=== PATIENT | female | born 1945 | race Caucasian/White ===

== ENCOUNTER 2017-05-21 15:06 | Inpatient (IN) | payer OTHER ==
--- NOTE | 2017-05-21 15:50 | EDPHY ---
H & P Time Seen by Provider: 05/21/17 15:49 HPI/ROS: Chief complaint. Abdominal pain HPI. Patient is 72-year-old female with history of Crohn's and colitis. She has now had 8 weeks of diarrhea with up to 12 mucousy bloody stools per day. She thinks it was bad food exposure when it began in mid March. She has diffuse abdominal discomfort. She has a hard time eating and keeping food and fluids down. Mainly she has decreased appetite. Some nausea but really no vomiting. Concern for dehydration and failure of outpatient treatment. She has been using as a call three times daily and prednisone. She has had negative stool studies as outpatient workup. Gastroenterology would like to admit here and do colonoscopy in the hospital tomorrow. Patient is recently finished radiation for breast cancer with metastatic disease to the bone. She complains of pain around her bottom and has been using Vaseline on the lesion. ROS Constitutional. no fever/chills, no weakness Eyes. no problems with vision ENT. no sore throat, no nasal drainage Cardiovascular. no chest pain Respiratory. no shortness of breath, no cough Abdominal. Abdominal pain, nausea, diarrhea . no problems urinating MS. no calf pain/swelling, no neck/back pain, no joint pain Skin. no rash Lymph. no swollen glands Neuro. no headache, no dizziness, no difficulty walking or with speech Past Medical/Surgical History: Past medical history Crohn's, colitis, hypothyroid, breast cancer that is metastatic to the spine, UTI Social History: , nonsmoker, no alcohol Smoking Status: Never smoked Physical Exam: General Appearance: Alert pleasant well-developed female mild distress vital signs are stable Eyes: Pupils equal and round no pallor or injection. ENT, Mouth: Mucous membranes are moist. Respiratory: There are no retractions, lungs are clear to auscultation. Cardiovascular: Regular rate and rhythm. Gastrointestinal: Abdomen is soft diffusely tender. No masses normal bowel sounds. I do not see significant lesions around the anus or bottom area. Neurological: Awake and alert, sensory and motor exams grossly normal. Skin: Warm and dry, no rashes. Musculoskeletal: Neck is supple nontender. Extremities symmetrical, full range of motion. Psychiatric: Patient is oriented X 3, there is no agitation. Constitutional: Initial Vital Signs Temperature (C) 36.7 C 05/21/17 15:23 Heart Rate 87 05/21/17 15:23 Respiratory Rate 16 05/21/17 15:23 Blood Pressure 149/98 H 05/21/17 15:23 O2 Sat (%) 97 05/21/17 15:23 O2 Delivery Mode Room Air Allergies/Adverse Reactions: cephalexin [Cephalexin] Allergy (Intermediate, Verified 05/21/17 15:21) Hives Sulfa (Sulfonamide Antibiotics) Allergy (Intermediate, Verified 05/21/17 15:21) Hives acetaminophen [From Vicodin] Allergy (Verified 05/21/17 15:21) amoxicillin [From Augmentin] Allergy (Verified 05/21/17 15:21) clavulanic acid [From Augmentin] Allergy (Verified 05/21/17 15:21) hydrocodone [From Vicodin] Allergy (Verified 05/21/17 15:21) morphine Allergy (Verified 05/21/17 15:21) Home Medications: Medication Instructions Recorded Calcium + D Soft Chewable Tab 05/21/17 Herceptin 05/21/17 Lidocaine 4% cream 05/21/17 Macrodantin 05/21/17 Mesalamine 05/21/17 Synthroid 05/21/17 Xgevia 05/21/17 Zetia 05/21/17 Medical Decision Making Procedures: IV normal saline. Fentanyl and Zofran IV ED Course/Re-evaluation: I consulted and discussed the case with Dr. Rodo Salinas patient's regular electrical controls technician. I consulted discussed case with , hospitalist, who agrees to the admission. The patient and I discussed laboratory evaluation, treatment plan including recommendation for admission. She expresses understanding and agreement I consulted and discussed the case with Dr. Gregory, the electrical controls technician fireperson who will see the patient in consultation Differential Diagnosis: Apparent colitis Crohn's flare. Failed outpatient therapy. Concern for dehydration and electrolyte abnormalities as well as potential colon cancer. - Data Points Laboratory Results: Laboratory Results 05/21/17 15:50 05/21/17 15:50 05/21/17 05/21/17 05/21/17 15:50 15:50 15:50 WBC 9.07 10^3/uL 10^3/uL (3.80-9.50) RBC 4.54 10^6/uL 10^6/uL (4.18-5.33) Hgb 14.6 g/dL g/dL (12.6-16.3) Hct 42.8 % % (38.0-47.0) MCV 94.3 fL fL (81.5-99.8) MCH 32.2 pg pg (27.9-34.1) MCHC 34.1 g/dL g/dL (32.4-36.7) RDW 13.6 % % (11.5-15.2) Plt Count 176 10^3/uL 10^3/uL (150-400) MPV 8.4 fL L fL (8.7-11.7) Neut % (Auto) 90.9 % H % (39.3-74.2) Lymph % (Auto) 1.5 % L % (15.0-45.0) [place] % (Auto) 5.3 % % (4.5-13.0) Eos % (Auto) 0.1 % L % (0.6-7.6) Baso % (Auto) 0.3 % % (0.3-1.7) Nucleat RBC Rel Count 0.0 % % (0.0-0.2) Absolute Neuts (auto) 8.24 10^3/uL H 10^3/uL (1.70-6.50) Absolute Lymphs (auto) 0.14 10^3/uL L 10^3/uL (1.00-3.00) Absolute Monos (auto) 0.48 10^3/uL 10^3/uL (0.30-0.80) Absolute Eos (auto) 0.01 10^3/uL L 10^3/uL (0.03-0.40) Absolute Basos (auto) 0.03 10^3/uL 10^3/uL (0.02-0.10) Absolute Nucleated RBC 0.00 10^3/uL 10^3/uL (0-0.01) Immature Gran % 1.9 % H % (0.0-1.1) Immature Gran # 0.17 10^3/uL H 10^3/uL (0.00-0.10) PT 13.2 SEC SEC (12.0-15.0) INR 0.98 (0.83-1.16) APTT 24.5 SEC SEC (23.0-38.0) Sodium 140 mEq/L mEq/L (135-145) Potassium 3.6 mEq/L mEq/L (3.5-5.2) Chloride 103 mEq/L mEq/L (97-110) Carbon Dioxide 22 mEq/l mEq/l (22-31) Anion Gap 15 mEq/L mEq/L (8-16) BUN 12 mg/dL mg/dL (7-23) Creatinine 0.7 mg/dL mg/dL (0.6-1.0) Estimated GFR > 60 Glucose 124 mg/dL H mg/dL (70-100) Calcium 8.7 mg/dL mg/dL (8.5-10.4) Medications Given: Discontinued Medications Fentanyl (Sublimaze) 50 mcg IVP EDNOW ONE Stop: 05/21/17 16:03 Last Admin: 05/21/17 16:12 Dose: 50 mcg Sodium Chloride (Ns) 1,000 mls @ 0 mls/hr IV ONCE ONE PRN Reason: Wide Open Stop: 05/21/17 15:58 Last Admin: 05/21/17 15:58 Dose: 1,000 mls Departure - Departure Disposition: [facility] Inpatient Acute Clinical Impression: Abdominal pain Qualifiers: Abdominal location: generalized Qualified Code(s): R10.84 - Generalized abdominal pain Condition: Fair
[2017-05-21] MEDS ORDERED: NS 1,000 ML IV ONE ×2 (15:57→16:12)
[2017-05-21] MEDS ORDERED: fentaNYL 100 MCG/2 ML INJ IVP ONE (16:02)
[2017-05-21 16:20] LABS: PLATELET COUNT 176 10^3/uL (150-400)
[2017-05-21 16:31] LABS: INR 0.98 (0.83-1.16); PROTIME(PATIENT) 13.2 SEC (12.0-15.0)
[2017-05-21] MEDS ORDERED: PEG 3350/NA SULF,BICARB,CL/KCL (GAVILYTE-G) 4000 ML BTL PO ONE (17:10)
[2017-05-21] MEDS ORDERED: ACETAMINOPHEN 325 MG TAB PO PRN (17:14)
[2017-05-21] MEDS ORDERED: HYDROmorphONE/DILAUDID 2 MG/ML INJ IVP PRN (17:14)
[2017-05-21] MEDS ORDERED: ONDANSETRON 4 MG/2 ML VIAL IVP PRN (17:14)
[2017-05-21] MEDS ORDERED: PROMETHAZINE HCL 25 MG/ML INJ IVP PRN (17:14)
[2017-05-21] MEDS ORDERED: NS 1,000 ML IV SCH (17:15)
--- NOTE | 2017-05-21 20:38 | GHP ---
[f rep st] HISTORY AND PHYSICAL DATE OF ADMISSION: 05/21/2017 CHIEF COMPLAINT: Diarrhea. HISTORY OF PRESENT ILLNESS: The patient is a 72-year-old female with a history of Crohn's disease. She has had 8 weeks of diarrhea, although she really describes it as mucousy stools. She states she has 2 tablespoons of mucus going to the bathroom twice an hour after eating. She will have a large d iarrhea stool. She is also undergoing radiation therapy for metastases to her coccyx from breast can cer. She had her last radiation treatment last Sunday. She is having tons of rectal pain and recta l spasms. A nurse recommended she try Preparation H. She took 1 rectal suppository and ever since t hen has had the addition of blood to her mucousy stools. She describes a small amount of pink blood mixed within the mucous. She has a diffuse abdominal pain. She has had nausea and decreased p.o. in take. PAST MEDICAL HISTORY: 1. Crohn's disease. 2. Hyperlipidemia. 3. Hypothyroidism. 4. Breast cancer with spinal metastases. MEDICATIONS: Please see computer record for full detailed list. ALLERGIES: Sulfa and cephalexin. SOCIAL HISTORY: No smoking. No alcohol. She lives with her . REVIEW OF SYSTEMS: Complete review of systems obtained. Review of systems negative for constitution al, HEENT, GI, pulmonary, cardiovascular, , hematology, skin, musculoskeletal, endocrine, psych, ex cept for positives and negatives as in HPI. FAMILY HISTORY: Positive for coronary artery disease. PHYSICAL EXAMINATION: GENERAL: Well-developed, well-nourished female, in no acute distress. VITAL SIGNS: Temperature 36.9, pulse 87, blood pressure 149/98, saturating 97% on room air. HEENT: Eye e xamination: Normal conjunctivae. Pupils react to light. ENT: Normal ears and nose. Hearing intac t. Normal teeth. Oropharynx moist. NECK: Trachea midline. No thyromegaly. CHEST: Normal effort . LUNGS: Clear to auscultation bilaterally. CARDIOVASCULAR: Regular rhythm. No murmur. No extre mity edema. ABDOMEN: Soft. Mild tenderness to palpation in the left lower quadrant. Otherwise non tender. No hepatosplenomegaly. SKIN: Warm, dry, and intact without rash. MUSCULOSKELETAL: No cya nosis or clubbing. Strength 5/5 upper and lower extremities. NEUROLOGIC: Cranial nerves intact. N ormal sensation to light touch. PSYCHIATRIC: Alert and oriented x3. Normal affect. Normal judgmen t and insight. Normal memory. LABORATORY DATA: White count 9.07, hematocrit 42.8, platelets 176. Sodium 140, potassium 3.6, chlor savana 103, bicarb 23, BUN 12, creatinine 0.7, glucose 124. INR is 0.98. This case was discussed with Dr. Gregory of Gastroenterology. He requests that we prep for colonoscop y tomorrow. ASSESSMENT AND PLAN: 1. Rectal spasms and left lower quadrant pain with mucousy stools and scant amount of blood. Differ ential diagnosis is flare of Crohn's disease versus radiation proctitis. Per Dr. Gregory, we will sta rt her empirically on IV Solu-Medrol but rule out an infection with a GI panel PCR. I will check a 3 -way of the abdomen to rule out obstruction and could also consider a CT scan of the abdomen and pelv is if etiology remains unclear. Plan for colonoscopy in the morning, and will order GoLYTELY prep th is evening. 2. Breast cancer. Just completed radiation therapy for metastases to her coccyx. She clearly could have radiation damage as the source of her symptoms. 3. Crohn's disease. Empiric steroids as discussed above. CODE STATUS: Full. ADMISSION STATUS: Will admit to observation. Reevaluate tomorrow regarding ongoing hospitalization. DVT PROPHYLAXIS: Will hold off on pharmacologic prophylaxis due to colonoscopy in the morning and po ssible GI bleed. /[id number]/MODL
[2017-05-21] MEDS: methylPREDNISolone SOD SUCC 40 MG/ML VIAL IVP SCH (21:40)
[2017-05-21] MEDS: MESALAMINE 800 MG TAB.DR PO SCH (21:41)
[2017-05-22] MEDS: LEVOTHYROXINE 100 MCG TAB PO SCH (05:07)
[2017-05-22 05:44] LABS: PLATELET COUNT 147 10^3/uL (150-400)
[2017-05-22] MEDS ORDERED: NS 500 ML IV ONE (07:15)
[2017-05-22] MEDS ORDERED: fentaNYL 100 MCG/2 ML INJ ONE (08:08)
[2017-05-22] MEDS ORDERED: MIDAZOLAM 2 MG/2 ML VIAL ONE (08:08)
--- NOTE | 2017-05-22 08:30 | PDPROPOC ---
Sedation Plan of Care Sedation Plan of Care: vital signs stable, mental status noted, patient educated of risks, benefits, alternatives, patient can tolerate sedation ASA Classification: ASA 2 Planned drugs: fentanyl, midazolam Mallampati Score: Class 1 Mallampati Reference Image: Patient passed 3-3-2 rule?: Yes
--- NOTE | 2017-05-22 08:43 | HOSPPROG ---
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 receiving localize radiation therapy -anemia and thrombocytopenia -history of chronic Crohn's disease, on mesalamine and prednisone 5 mg daily at the time of admission PLANS: -colonoscopy today -for now continue steroids SUBJECTIVE: OBJECTIVE Vitals reviewed: Trimmer Tailer, my review: Exam: alert oriented skin warm dry color ok resps not labored lungs clear BSs heart regular abd soft nondistended nontender, bowel sounds present limbs warm, no edema iv site ok Objective: Vital Signs Temp Pulse Resp BP Pulse Ox 36.3 C 76 18 151/89 H 95 05/22/17 07:46 05/22/17 07:46 05/22/17 07:46 05/22/17 07:46 05/22/17 07:46 Laboratory Results 05/22/17 05:30 05/22/17 05:24 05/21/17 05/22/17 05/23/17 06:59 06:59 06:59 Intake Total 1458 Output Total 300 Balance 1158 PT 13.2 SEC (12.0-15.0) 05/21/17 15:50 INR 0.98 (0.83-1.16) 05/21/17 15:50 ICD10 Worksheet Patient Problems: Problems Problem Status Onset Abdominal pain Acute
--- NOTE | 2017-05-22 08:55 | SUROPNOTE ---
[facility] Operative Report - Surgery BRIEF COLONOSCOPY NOTE Meds: 6mg versed, 150ug fentanyl Indication: hematochezia, diarrhea Complications: none acutely Findings: 1. scattered aphthous ulcers throughout the colon - likely mild Crohn's colitis - bx'd 2. minimal terminal ileal inflammation - bx'd 3. moderate proctitis - bx'd Impression/Recs: 1. Colitis/Proctitis - suspect symptoms largely from distal inflammation - etiology could be radiation induced vs crohn's - can dc IV steroids, change to po prednisone 40mg with taper (5mg/d/week drop) - initiate steroid enema now, and then qHS - await bx results - ok to advance diet - can dc home once tolerating po and having reasonable control of symptoms - will arrange outpt f/u with Dr. Salinas
[2017-05-22] MEDS ORDERED: MESALAMINE 4 GM/60 ML ENEMA BOTTLE PR ONE (09:12)
--- NOTE | 2017-05-22 09:45 | GIREPORT ---
[facility] Surgical Services - Endoscopy Department Patient Name: Valerio Verduzco Procedure Date: 05/22/2017 8:18 AM Patient Type: Inpatient Attending MD/ ER Physician: Eric Gregory MD Procedure: Colonoscopy Indications: Generalized abdominal pain, Clinically significant diarrhea of unexplai olga origin, Hematochezia, Crohn's disease of the colon Providers: Eric Gregory MD Medicines: Fentanyl 150 micrograms IV, Midazolam 6 mg IV Complications: No immediate complications. Description of Procedure: After obtaining informed consent, the scope was passed under direct vis ion. Throughout the procedure, the patient's blood pressure, pulse, and oxyg en saturations were monitored continuously. The Colonoscope with irrigatio n channel was introduced through the anus and advanced to the terminal il eum. The colonoscopy was performed without difficulty. The patient tolerated the procedure well. The quality of the bowel preparation was good. Moderate Sedation: Moderate (conscious) sedation was administered by the endoscopy nurse shelia mares supervised by the endoscopist. The following parameters were monitored: oxygen saturation, heart rate, blood pressure, and response to care. To randee physician intraservice time was 31 minutes. Findings: A few scattered non-bleeding aphthae were found in the entire colon. Biopsies were taken with a cold forceps for histology. An area of moderately congested mucosa was found in the rectum. Biopsie s were taken with a cold forceps for histology. Localized inflammation, mild in severity and characterized by congestio n (edema) and erosions was found in the terminal ileum. Biopsies were remy en with a cold forceps for histology. Estimated Blood Loss: Estimated blood loss: none. Post Op Diagnosis: - Aphtha in the entire examined colon. Biopsied. - Congested mucosa in the rectum. Biopsied. - Ileitis. Biopsied. Recommendation: - Return patient to [facility] for ongoing care. - Resume regular diet. - DC IV steroids and start po prednisone taper. - Await pathology results. - Recommend enema tehrapy for proctitis (mesalamine or steroid, pending [facility]). Attending Participation: I personally performed the entire procedure. Eric Gregory MD Eric Gregory MD 05/22/2017 9:44:51 AM This report has been signed electronicallyEric Gregory MD Number of Addenda: 0 Note Initiated On: 05/22/2017 8:18 AM Total Procedure Duration Time 0 hours 17 minutes 0 seconds [email or web address]
--- NOTE | 2017-05-22 10:21 | ASMTCMCOM ---
CM Note CM Note Notes: Patient admitted with abdominal pain. She has a colonoscopy today which revealed likely mild Crohn's colitis. Biopies were taken, and pathology is pending. She lives with her Jere and is normally independent. She will d/c home when she can tolerate PO and having reasonable symptom control. Date Signed: 05/22/2017 10:20 AM Electronically Signed By:Yesika Carpio RN
[2017-05-22] MEDS: MESALAMINE 800 MG TAB.DR PO SCH ×3 (11:43→21:13)
[2017-05-22] MEDS: EZETIMIBE 10 MG TAB PO SCH (11:43)
[2017-05-22] MEDS: predniSONE 20 MG TAB PO SCH (11:44)
[2017-05-22] MEDS: methylPREDNISolone SOD SUCC 40 MG/ML VIAL IVP SCH (11:44)
--- NOTE | 2017-05-22 12:50 | GCON ---
[f rep st] CONSULTATION REQUESTING PHYSICIAN: Hannah England MD REASON FOR CONSULTATION: Bloody stool. HISTORY OF PRESENT ILLNESS: The patient is a 72-year-old female known to our office from previous diagnosis of Crohn colitis. She had been maintained with Mesalamine alone. Recently, she reported increasing symptoms of abdominal pain , diarrhea, and bloody stool. She had her Asacol dose adjusted and was started on a low dose of prednisone. She had ongoing (she reports) worsening symptoms, and so she presented to the emergency room for evaluation. She describes having multiple crampy, loose bowel movements associated with mucus and blood. Of note, recently she started on XRT therapy of a breast cancer metastasis to the coccyx area. She reports that her change in bowel habits began prior to her XRT treatments. She reports no fevers, chills, or sweats. She has had no sick contacts. She reports no recent travel. She reports no unusual food choices. Outpatient stool exam was negative for C difficile. PAST MEDICAL HISTORY: Includes Crohn disease, elevated lipids, hypothyroidism, and breast cancer with spinal metastasis. OUTPATIENT MEDICINES: Include calcium, Herceptin, Macrodantin, mesalamine, Synthroid, Xgeva, and Zetia. ALLERGIES: Cephalexin, sulfa, Vicodin, Augmentin, and morphine. SOCIAL HISTORY: She does not smoke, drink alcohol, or use drugs. She lives with her . REVIEW OF SYSTEMS: A complete 10-point review was undertaken with the patient and is negative except for the pertinent positives and negatives detailed in the History of Present Illness. FAMILY HISTORY: Positive for coronary disease. PHYSICAL EXAMINATION: GENERAL: An obese, well-developed female in no apparent distress. HEENT: Pupils are equal, round, and reactive to light and accommodation. Sclerae anicteric. Oropharynx clear. NECK: Supple without lymphadenopathy. HEART: Regular without murmur. ABDOMEN: Soft but diffusely tender. Normoactive bowel sounds. EXTREMITIES: Free of cyanosis, clubbing, and edema. NEURO: Grossly nonfocal. SKIN: Warm and dry without rash. PSYCH : Normal mood and affect. LABORATORY TESTING: White count of 8.09, hemoglobin of 12.4, hematocrit of 37.1 , platelet count of 147. INR of 0.98. Sodium of 141, potassium of 3.4, chloride of 105, bicarb of 24, BUN of 9, creatinine of 0.6. Stool testing is currently pending. IMPRESSION AND RECOMMENDATIONS: The patient has a history of inflammatory bowel disease of the colon. She is being admitted to the hospital for the evaluation of rectal bleeding, abdominal pain, and diarrhea. The differential diagnosis includes inflammatory colitis, infectious colitis, and perhaps radiation-induced colitis (although it appears that symptoms began prior to radiation). I recommend she undergo stool testing, that we increase her IV steroid therapy, and that she undergo endoscopic evaluation of her symptoms. Due to her obesity, she will be at increased risk of conscious sedation, but I do not think those risks outweigh the potential benefits. /[id number]/MODL MTDD
[2017-05-22] MEDS ORDERED: HYDROmorphone HCL/NS 0.5 MG/ML SYR IVP PRN (14:30)
[2017-05-22] MEDS: VANCOMYCIN 125 MG/2.5 ML UDL PO SCH ×2 (15:36→21:12)
--- NOTE | 2017-05-22 18:56 | HOSPPROG ---
Hospitalist Progress Note Assessment/Plan: DIAGNOSES: -abdominal and rectal pain, differential diagnosis includes flare of Crohn's disease versus radiation proctitis/colitis, and potential will for C difficile colitis * Endoscopic findings not classic for definite Crohn's, nor for C difficile enteritis, but could not rule out either 1 based on endoscopy -C difficile positive stool by PCR -breast cancer metastatic to coccyx receiving localize radiation therapy -anemia and thrombocytopenia -history of chronic Crohn's disease, on mesalamine and prednisone 5 mg daily at the time of admission The Dr. Gregory he has started on higher dose prednisone and I would agree with this 4 likely active Crohn's disease. As we are continuing her mesalamine which I also agree with. Whether not her C difficile is actually creating pathology and contributing to her symptoms is difficult to tell, but given her overall picture it is reasonable to give her oral vancomycin and I have ordered that and we have placed her on contact isolation. PLANS: -high-dose oral steroids, continue mesalamine -IV hydration -oral vancomycin therapeutic doses -contact isolation for C difficile positive stool test -repeat CBC and chemistries in morning SUBJECTIVE: Patient still has quite a bit of abdominal and rectal pain. She is having frequent loose stools. 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 Gregory endoscopic findings which show some diffuse scattered aphthous type ulcers and some proctitis. Objective: Vital Signs Temp Pulse Resp BP Pulse Ox 36.7 C 72 17 133/80 H 97 05/22/17 15:17 05/22/17 15:17 05/22/17 15:17 05/22/17 15:17 05/22/17 15:17 Microbiology 05/21/17 22:22 Gastrointestinal Tract Panel (PCR) - Final Stool Clostridium Difficile Detected Laboratory Results 05/22/17 05:30 05/22/17 05:24 05/21/17 05/22/17 05/23/17 06:59 06:59 06:59 Intake Total 1458 570 Output Total 300 Balance 1158 570 PT 13.2 SEC (12.0-15.0) 05/21/17 15:50 INR 0.98 (0.83-1.16) 05/21/17 15:50 ICD10 Worksheet Patient Problems: Problems Problem Status Onset Abdominal pain Acute
[2017-05-22] MEDS ORDERED: MESALAMINE 4 GM/60 ML ENEMA BOTTLE PR SCH (21:00)
[2017-05-22] MEDS: NITROFURANTOIN 50 MG CAP PO SCH (21:12)
[2017-05-23] MEDS: LEVOTHYROXINE 100 MCG TAB PO SCH (05:13)
[2017-05-23] MEDS: VANCOMYCIN 125 MG/2.5 ML UDL PO SCH ×4 (05:14→22:18)
--- NOTE | 2017-05-23 08:33 | PDMN ---
Medical Necessity Medical necessity: change to IP; los>2mn for severe abdominal and rectal pain, . c diff, Crohn's disease vs radiation proctitis/colitis w/uncontrollable diarrhea; requires IVF, oral vanco, contact precautions, high dose oral steroids ; comorbid breast cancer metastatic to coccyx, anemia, thrombocytopenia, and Crohn's ; per order and progress note 05/22/17
[2017-05-23] MEDS: predniSONE 20 MG TAB PO SCH (09:00)
[2017-05-23] MEDS: MESALAMINE 800 MG TAB.DR PO SCH ×3 (09:00→22:21)
[2017-05-23] MEDS: EZETIMIBE 10 MG TAB PO SCH (10:51)
--- NOTE | 2017-05-23 11:15 | HOSPPROG ---
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 She is taking in some clear liquids without nausea and appears to be keeping hydrated orally at this time PLANS: -high-dose oral steroids, continue mesalamine -IV hydration at any point if she is not hydrating orally well -oral vancomycin therapeutic doses -contact isolation for C difficile positive stool test -I will review with Dr. Bri Sagastume whether some topical lidocaine or other topical therapy might be helpful unsafe for treating her pain as she goes through this -repeat CBC and chemistries in morning SUBJECTIVE: Patient still has quite a bit of anal and rectal pain with her stooling episodes. She is having frequent loose stools though smaller volume than yesterday. 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, my review: Exam: alert oriented skin warm dry color ok resps not labored lungs clear BSs heart regular abd soft but with some distention and tenderness, no rebound and no masses, bowel sounds present limbs warm, no edema iv site ok Laboratory data: Somewhat more anemic on CBC today otherwise stable Potassium better on Chem panel Microbiology data: GI pathogen panel shows presence of C difficile by PCR Objective: Vital Signs Temp Pulse Resp BP Pulse Ox 36.5 C 63 18 129/70 H 94 05/23/17 08:29 05/23/17 08:29 05/23/17 08:29 05/23/17 08:29 05/23/17 08:29 Laboratory Results 05/23/17 04:40 05/23/17 04:40 05/22/17 05/23/17 05/24/17 06:59 06:59 06:59 Intake Total 1080 Output Total 100 Balance 980 PT 13.2 SEC (12.0-15.0) 05/21/17 15:50 INR 0.98 (0.83-1.16) 05/21/17 15:50 - Time Spent With Patient Time Spent with Patient: greater than 35 minutes Time Spent with Patient: Greater than 35 minutes spent on this patients care, greater than 50% of time spent counseling, educating, and coordinating care regarding the above mentioned plan. ICD10 Worksheet Patient Problems: Problems Problem Status Onset Abdominal pain Acute
--- NOTE | 2017-05-23 17:34 | SOAPPROG ---
SOAP Progress Note Assessment/Plan: Assessment: 1. Diarrhea 2. Rectal pain and urgency 3. c.diff PCR Pos Plan: 1. Continue PO prednisone 40mg/d 2. Continue vancomycin po QID 3. dc mesalamine enema 4. continue po mesalamine 5. start steroid suppository 6. ok to continue regular diet 7. will follow 05/23/17 17:31 Subjective: CC: f/u colitis/crohns S: still with pain, urgency, tenesmus, and diarrhea minimal improvement since admit no fever or nausea tolerating PO multiple BMs through the day with accidents Objective: Vital Signs Temp Pulse Resp BP Pulse Ox 36.7 C 71 17 148/79 H 95 05/23/17 15:48 05/23/17 15:48 05/23/17 15:48 05/23/17 15:48 05/23/17 15:48 Laboratory Results 05/23/17 04:40 05/23/17 04:40 05/22/17 05/23/17 05/24/17 05:59 05:59 05:59 Intake Total 1080 Output Total 100 Balance 980 PT 13.2 SEC (12.0-15.0) 05/21/17 15:50 INR 0.98 (0.83-1.16) 05/21/17 15:50 Microbiology 05/21/17 22:22 Stool Gastrointestinal Tract Panel (PCR) - Final Clostridium Difficile Detected Laboratory Tests 05/23/17 05/23/17 04:40 04:40 WBC 5.22 RBC 3.32 L Hgb 10.8 L Hct 32.3 L Plt Count 120 L Sodium 143 Potassium 3.7 Chloride 110 Carbon Dioxide 24 Anion Gap 9 BUN 7 Calcium 7.3 L Total Bilirubin 0.7 AST 16 ALT 24 Alkaline Phosphatase 62 Total Protein 5.1 L Albumin 2.9 L Physical Exam - Physical Exam General Appearance: alert EENT: PERRL/EOMI Neck: non-tender Respiratory: chest non-tender Cardiac/Chest: normal peripheral pulses Abdomen: normal bowel sounds, non-tender, soft, No organomegaly, No distended, No guarding Back: Normal inspection Skin: normal color Neuro/Psych: no motor/sensory deficits, alert, normal mood/affect ICD10 Worksheet Patient Problems: Problems Problem Status Onset Abdominal pain Acute
[2017-05-23] MEDS: HYDROCORTISONE ACETATE 25 MG SUPP PR SCH (22:22)
[2017-05-24] MEDS: LEVOTHYROXINE 100 MCG TAB PO SCH (05:35)
[2017-05-24] MEDS: VANCOMYCIN 125 MG/2.5 ML UDL PO SCH ×4 (05:36→22:02)
[2017-05-24] MEDS ORDERED: PROTOCOL POTASSIUM 1 DOSE MISC PRN (06:26)
[2017-05-24] MEDS ORDERED: POTASSIUM CL 10 MEQ TAB PO ONE ×3 (08:19→21:00)
[2017-05-24] MEDS: predniSONE 20 MG TAB PO SCH (09:27)
[2017-05-24] MEDS: HYDROCORTISONE ACETATE 25 MG SUPP PR SCH ×2 (09:28→20:59)
[2017-05-24] MEDS: MESALAMINE 800 MG TAB.DR PO SCH ×3 (09:28→20:58)
--- NOTE | 2017-05-24 09:38 | HOSPPROG ---
Hospitalist Progress Note Assessment/Plan: #Diarrhea: C diff positive. Prednisone, PO Vanc #Crohn's colitis: disease with rectal/abd pain: oral and suppository steroids, mesalamine #Metastatic breast caner: XRT to coccyx #Hypokalemia: on protocol #Hypothyroidism: LT4 #Diet: regular #Disp: plan to DC possibly tomorrow Subjective: rectal pain and spasms improved with steroid suppositories Objective: Vital Signs Temp Pulse Resp BP Pulse Ox 36.6 C 65 18 137/78 H 95 05/24/17 08:00 05/24/17 08:00 05/24/17 08:00 05/24/17 08:00 05/24/17 08:00 Laboratory Results 05/24/17 05:13 05/24/17 05:13 05/23/17 05/24/17 05/25/17 05:59 05:59 05:59 Intake Total 1080 950 Output Total 100 Balance 980 950 PT 13.2 SEC (12.0-15.0) 05/21/17 15:50 INR 0.98 (0.83-1.16) 05/21/17 15:50 - Physical Exam Constitutional: no apparent distress Eyes: PERRL Ears, Nose, Mouth, Throat: moist mucous membranes Cardiovascular: regular rate and rhythym Respiratory: no respiratory distress, no rales or rhonchi Gastrointestinal: normoactive bowel sounds, other (mild diffuse TTP) Genitourinary: no bladder fullness, no bladder tenderness Skin: warm Musculoskeletal: full muscle strength Neurologic: AAOx3, CN II-XII Intact ICD10 Worksheet Patient Problems: Problems Problem Status Onset Abdominal pain Acute
--- NOTE | 2017-05-24 10:30 | SOAPPROG ---
SOAP Progress Note Assessment/Plan: Assessment: 1. Diarrhea 2. Rectal pain and urgency 3. c.diff PCR Pos 4. crohns colitis Plan: 1. Continue PO prednisone 40mg/d 2. Continue vancomycin po QID 3. continue steroid suppository BID 4. continue po mesalamine 6. ok to continue regular diet 7. will follow 8. patient slowly improving. we discussed the treatments may take some more time to be helpful 9. may dc home, with symptoms, on current meds, so long as she can tolerate discomfort and has gi f/u soon 10. pt reluctant to dc home today. this is reasonable. will continue to assess day to day. - will follow Subjective: CC: f/u crohns, c.diff, proctitis S: improving slowly reports steroid suppository reduced symptoms some no fever eating regular diet some urgency and diarrhea persistent no bloody stool Objective: Vital Signs Temp Pulse Resp BP Pulse Ox 36.6 C 65 18 137/78 H 95 05/24/17 08:00 05/24/17 08:00 05/24/17 08:00 05/24/17 08:00 05/24/17 08:00 Laboratory Results 05/24/17 05:13 05/24/17 05:13 05/23/17 05/24/17 05/25/17 05:59 05:59 05:59 Intake Total 1080 950 Output Total 100 Balance 980 950 PT 13.2 SEC (12.0-15.0) 05/21/17 15:50 INR 0.98 (0.83-1.16) 05/21/17 15:50 Physical Exam - Physical Exam EENT: PERRL/EOMI Neck: full range of motion Respiratory: lungs clear Cardiac/Chest: regular rate, rhythm Abdomen: normal bowel sounds, non-tender, soft, pulsatile mass, No distended, No guarding, No rebound Rectal: deferred Skin: normal color Extremities: normal range of motion Neuro/Psych: no motor/sensory deficits ICD10 Worksheet Patient Problems: Problems Problem Status Onset Abdominal pain Acute
[2017-05-24] MEDS: EZETIMIBE 10 MG TAB PO SCH (11:46)
--- NOTE | 2017-05-24 12:17 | ASMTCMCOM ---
CM Note CM Note Notes: Met with pt, and dtr to discuss DC plans. Pt would like HC RN. [facility] alerted. Pt Also wants to hire pvt duty help for at least a month for at least 8 hrs/day. Gave pt the list and her dtr will make the calls. CM will follow as needed. Date Signed: 05/24/2017 12:16 PM Electronically Signed By:Dolly Milner LCSW
[2017-05-24] MEDS: NITROFURANTOIN 50 MG CAP PO SCH (20:58)
[2017-05-25] MEDS ORDERED: POTASSIUM CL 10 MEQ TAB PO ONE ×3 (05:56→22:30)
[2017-05-25] MEDS: VANCOMYCIN 125 MG/2.5 ML UDL PO SCH ×4 (06:13→22:43)
[2017-05-25] MEDS: LEVOTHYROXINE 100 MCG TAB PO SCH (06:13)
[2017-05-25] MEDS: HYDROmorphONE/DILAUDID 2 MG TAB PO PRN ×3 (06:24→22:39)
[2017-05-25] MEDS: MESALAMINE 800 MG TAB.DR PO SCH ×3 (09:07→22:38)
[2017-05-25] MEDS: predniSONE 20 MG TAB PO SCH (09:07)
[2017-05-25] MEDS: EZETIMIBE 10 MG TAB PO SCH (09:07)
--- NOTE | 2017-05-25 10:41 | HOSPPROG ---
Hospitalist Progress Note Assessment/Plan: #Diarrhea: C diff positive (Day 4) . Prednisone, PO Vanc. Choleystyramine added. #Crohn's colitis: disease with rectal/abd pain: oral and suppository steroids, mesalamine #Metastatic breast caner: XRT to coccyx #Hypokalemia: due to poor PO intake. Repleting on protocol #Hypothyroidism: LT4 #Diet: regular #Disp: plan to DC when clinically improving Subjective: excessive diarrhea overnight Objective: Vital Signs Temp Pulse Resp BP Pulse Ox 36.2 C 77 19 147/3 H 96 05/25/17 08:52 05/25/17 08:52 05/25/17 08:52 05/25/17 08:52 05/25/17 08:52 Laboratory Results 05/24/17 05:13 05/25/17 04:48 05/24/17 05/25/17 05/26/17 05:59 05:59 05:59 Intake Total 950 500 Output Total 5 Balance 950 495 PT 13.2 SEC (12.0-15.0) 05/21/17 15:50 INR 0.98 (0.83-1.16) 05/21/17 15:50 - Physical Exam Constitutional: no apparent distress Eyes: PERRL Ears, Nose, Mouth, Throat: moist mucous membranes Cardiovascular: regular rate and rhythym Respiratory: no respiratory distress Gastrointestinal: normoactive bowel sounds, distension ICD10 Worksheet Patient Problems: Problems Problem Status Onset Abdominal pain Acute
--- NOTE | 2017-05-25 12:45 | SOAPPROG ---
SOAP Progress Note Assessment/Plan: Assessment: 1. Diarrhea 2. Rectal pain and urgency 3. c.diff PCR Pos 4. crohn's colitis - mild Plan: 1. Continue PO prednisone 40mg/d 2. Continue vancomycin po QID 3. continue steroid suppository BID 4. continue po mesalamine 6. ok to continue regular diet 7. add cholestyramine 8. despite rough night last night, patient slowly improving. we discussed the treatments may take some more time to be helpful 9. will try to avoid stepping back up to IV solumedrol - Dr. Chew to assume rounding on 05/25/17 at 1700 05/25/17 12:42 Subjective: CC: f/u diarrhea and rectal pain. S: no fever no sob no nause ongoing pain and diarrhea rectal pain Objective: Vital Signs Temp Pulse Resp BP Pulse Ox 36.8 C 72 15 147/92 H 95 05/25/17 12:30 05/25/17 12:30 05/25/17 12:30 05/25/17 12:30 05/25/17 12:30 Laboratory Results 05/24/17 05:13 05/25/17 04:48 05/24/17 05/25/17 05/26/17 05:59 05:59 05:59 Intake Total 950 500 Output Total 5 Balance 950 495 PT 13.2 SEC (12.0-15.0) 05/21/17 15:50 INR 0.98 (0.83-1.16) 05/21/17 15:50 Physical Exam - Physical Exam General Appearance: WD/WN, alert EENT: PERRL/EOMI Respiratory: lungs clear, normal breath sounds Cardiac/Chest: regular rate, rhythm, No edema Abdomen: normal bowel sounds Skin: normal color Extremities: normal range of motion Neuro/Psych: no motor/sensory deficits ICD10 Worksheet Patient Problems: Problems Problem Status Onset Abdominal pain Acute
[2017-05-25] MEDS: HYDROCORTISONE ACETATE 25 MG SUPP PR SCH ×2 (16:36→23:53)
[2017-05-25] MEDS: CHOLESTYRAMINE/SUCROSE 4 GM PKT PO SCH ×2 (18:03→23:48)
[2017-05-26] MEDS: HYDROmorphONE/DILAUDID 2 MG TAB PO PRN ×2 (04:54→20:48)
[2017-05-26] MEDS: VANCOMYCIN 125 MG/2.5 ML UDL PO SCH ×4 (04:54→20:47)
[2017-05-26] MEDS: LEVOTHYROXINE 100 MCG TAB PO SCH (04:54)
[2017-05-26] MEDS ORDERED: POTASSIUM CL 10 MEQ TAB PO ONE (08:49)
[2017-05-26] MEDS: MESALAMINE 800 MG TAB.DR PO SCH ×3 (09:03→20:49)
[2017-05-26] MEDS: EZETIMIBE 10 MG TAB PO SCH (09:04)
[2017-05-26] MEDS: predniSONE 20 MG TAB PO SCH (09:04)
--- NOTE | 2017-05-26 10:45 | HOSPPROG ---
Hospitalist Progress Note Assessment/Plan: #Diarrhea: C diff positive (Day 5) . Prednisone, PO Vanc. Choleystyramine with some improvement. #Crohn's colitis: disease with rectal/abd pain: oral and suppository steroids, mesalamine #Metastatic breast caner: XRT to coccyx #Hypokalemia: due to poor PO intake. Repleting on protocol #Hypothyroidism: LT4 #Rectal spasms: add Levsin #Diet: regular #Disp: plan to DC when clinically improving in next 1-2 days Subjective: slept throught night. Less urgency with BMs. Still having rectal spasms Objective: Vital Signs Temp Pulse Resp BP Pulse Ox 36.6 C 63 17 147/81 H 97 05/26/17 08:41 05/26/17 08:41 05/26/17 08:41 05/26/17 08:41 05/26/17 08:41 Laboratory Results 05/24/17 05:13 05/26/17 05:00 05/25/17 05/26/17 05/27/17 05:59 05:59 05:59 Intake Total 500 1050 Output Total 5 Balance 495 1050 PT 13.2 SEC (12.0-15.0) 05/21/17 15:50 INR 0.98 (0.83-1.16) 05/21/17 15:50 - Physical Exam Constitutional: no apparent distress Eyes: PERRL Ears, Nose, Mouth, Throat: moist mucous membranes Cardiovascular: regular rate and rhythym Respiratory: no respiratory distress Gastrointestinal: normoactive bowel sounds, tenderness (mild LLQ TTP), No guarding, No rebound ICD10 Worksheet Patient Problems: Problems Problem Status Onset Abdominal pain Acute
[2017-05-26] MEDS: HYDROCORTISONE ACETATE 25 MG SUPP PR SCH ×2 (10:46→20:48)
[2017-05-26] MEDS: CHOLESTYRAMINE/SUCROSE 4 GM PKT PO SCH ×3 (10:46→22:30)
--- NOTE | 2017-05-26 12:06 | SOAPPROG ---
SOAP Progress Note Assessment/Plan: Assessment: 1. C. Diff colitis; diarrhea slowing. 2. Rectal spasm; likely secondary to C. Diff inflammation. 3. Crohn's colitis of indeterminant activity albeit doubt that this is the cause of patients diarrhea and rectal spasm. Plan: 1. Levsin/SL PRN rectal spasm. 2. Continue antibiotic treatment for C. Diff. 3. Continue oral Prednisone at present dosage. 4. Will follow with you. Isma De La Fuente MD 05/26/17 12:06 Subjective: CC: C. Diff colitis. Interval HPI: Patient having less diarrhea and rectal spasm today. Objective: Vital Signs Temp Pulse Resp BP Pulse Ox 36.6 C 63 17 147/81 H 97 05/26/17 08:41 05/26/17 08:41 05/26/17 08:41 05/26/17 08:41 05/26/17 08:41 Laboratory Results 05/24/17 05:13 05/26/17 05:00 05/25/17 05/26/17 05/27/17 05:59 05:59 05:59 Intake Total 500 1050 Output Total 5 Balance 495 1050 PT 13.2 SEC (12.0-15.0) 05/21/17 15:50 INR 0.98 (0.83-1.16) 05/21/17 15:50 Physical Exam - Physical Exam General Appearance: WD/WN, alert, no apparent distress Respiratory: lungs clear, normal breath sounds Cardiac/Chest: regular rate, rhythm Abdomen: normal bowel sounds, non-tender, soft Skin: normal color, warm/dry Neuro/Psych: alert, normal mood/affect, oriented x 3 ICD10 Worksheet Patient Problems: Problems Problem Status Onset Abdominal pain Acute
[2017-05-26] MEDS ORDERED: HYOSCYAMINE SULFATE 0.125 MG TAB SL PRN (13:20)
[2017-05-26] MEDS: ACETAMINOPHEN 500 MG TAB PO SCH ×2 (16:34→20:48)
[2017-05-27] MEDS: VANCOMYCIN 125 MG/2.5 ML UDL PO SCH ×4 (05:04→20:06)
[2017-05-27] MEDS: LEVOTHYROXINE 100 MCG TAB PO SCH (05:05)
[2017-05-27] MEDS: HYDROmorphONE/DILAUDID 2 MG TAB PO PRN ×2 (07:25→20:05)
[2017-05-27] MEDS: ACETAMINOPHEN 500 MG TAB PO SCH ×3 (08:28→20:55)
[2017-05-27] MEDS: MESALAMINE 800 MG TAB.DR PO SCH ×3 (08:29→20:06)
[2017-05-27] MEDS: predniSONE 20 MG TAB PO SCH (08:29)
[2017-05-27] MEDS: HYDROCORTISONE ACETATE 25 MG SUPP PR SCH ×2 (08:30→20:09)
[2017-05-27] MEDS ORDERED: POTASSIUM CL 10 MEQ TAB PO ONE ×2 (10:00→13:15)
[2017-05-27] MEDS: CHOLESTYRAMINE/SUCROSE 4 GM PKT PO SCH ×3 (10:05→22:13)
[2017-05-27] MEDS: EZETIMIBE 10 MG TAB PO SCH (13:11)
--- NOTE | 2017-05-27 13:11 | HOSPPROG ---
Hospitalist Progress Note Assessment/Plan: #Diarrhea: C diff positive (Day 6) . Prednisone, PO Vanc. Choleystyramine with some improvement. #Crohn's colitis: disease with rectal/abd pain: oral and suppository steroids, mesalamine #Metastatic breast caner: XRT to coccyx #Hypokalemia: due to poor PO intake. Repleted #Chronic UTI: stopped ppx Macrobid as likely contributed to C diff infection #Hypothyroidism: LT4 #Rectal spasms: add Levsin #Diet: regular #Disp: plan to DC tomorrow Subjective: more formed stools today. Significant rectal pain with suppository Objective: Vital Signs Temp Pulse Resp BP Pulse Ox 36.4 C 56 L 17 159/86 H 96 05/27/17 07:43 05/27/17 07:43 05/27/17 07:43 05/27/17 07:43 05/27/17 07:43 Laboratory Results 05/24/17 05:13 05/27/17 07:35 05/26/17 05/27/17 05/28/17 05:59 05:59 05:59 Intake Total 1050 1100 Balance 1050 1100 PT 13.2 SEC (12.0-15.0) 05/21/17 15:50 INR 0.98 (0.83-1.16) 05/21/17 15:50 - Physical Exam Constitutional: no apparent distress Eyes: PERRL Ears, Nose, Mouth, Throat: moist mucous membranes Cardiovascular: regular rate and rhythym, no murmur, rub, or gallop Respiratory: no respiratory distress, no rales or rhonchi Gastrointestinal: normoactive bowel sounds, soft, non-tender abdomen, No distension Genitourinary: no bladder fullness Skin: warm Musculoskeletal: full muscle strength ICD10 Worksheet Patient Problems: Problems Problem Status Onset Abdominal pain Acute
--- NOTE | 2017-05-27 15:26 | SOAPPROG ---
SOAP Progress Note Assessment/Plan: Assessment: 1. C. Diff colitis; diarrhea improved. One formed and one loose BM today. 2. Rectal spasm; likely secondary to C. Diff inflammation; improved. 3. Crohn's colitis of indeterminant activity albeit doubt that this is the cause of patients diarrhea and rectal spasm. Plan: 1. Levsin/SL PRN rectal spasm. 2. Continue antibiotic treatment for C. Diff. 3. Continue oral Prednisone at present dosage. 4. Hopefully can D/C home in 1-2 days. Isma De La Fuente MD 05/27/17 15:23 Subjective: CC: C. Diff. colitis, Crohn's disease. Interval HPI: Patient feeling better with less BM's and one formed stool today. Less rectal spasm as well. Objective: Vital Signs Temp Pulse Resp BP Pulse Ox 36.4 C 56 L 17 159/86 H 96 05/27/17 07:43 05/27/17 07:43 05/27/17 07:43 05/27/17 07:43 05/27/17 07:43 Laboratory Results 05/24/17 05:13 05/27/17 07:35 05/26/17 05/27/17 05/28/17 05:59 05:59 05:59 Intake Total 1050 1100 Balance 1050 1100 PT 13.2 SEC (12.0-15.0) 05/21/17 15:50 INR 0.98 (0.83-1.16) 05/21/17 15:50 Physical Exam - Physical Exam General Appearance: WD/WN, alert, no apparent distress Respiratory: lungs clear, normal breath sounds Cardiac/Chest: regular rate, rhythm Abdomen: normal bowel sounds, non-tender, distended Skin: normal color, warm/dry Neuro/Psych: alert, normal mood/affect, oriented x 3 ICD10 Worksheet Patient Problems: Problems Problem Status Onset Abdominal pain Acute
[2017-05-27 15:35] VITALS: RESP 16
--- NOTE | 2017-05-27 16:49 | ASMTCMCOM ---
CM Note CM Note Notes: 05/27/2017 Case Management Note Reviewed chart. D/C anticipated Sunday or Sunday. There are no PT or OT evals at this time. Case Management d/c poc: Remains [facility] with private duty help. Case Management to follow. Date Signed: 05/27/2017 04:48 PM Electronically Signed By:Franchecsa Negro RN
[2017-05-28] MEDS: HYDROmorphONE/DILAUDID 2 MG TAB PO PRN ×2 (02:45→09:11)
[2017-05-28 04:36] VITALS: TEMP 97.9
[2017-05-28] MEDS: VANCOMYCIN 125 MG/2.5 ML UDL PO SCH ×2 (05:56→12:54)
[2017-05-28] MEDS: LEVOTHYROXINE 100 MCG TAB PO SCH (05:56)
[2017-05-28] MEDS ORDERED: POTASSIUM CL 10 MEQ TAB PO ONE (07:34)
[2017-05-28] MEDS: predniSONE 20 MG TAB PO SCH (09:13)
[2017-05-28] MEDS: ACETAMINOPHEN 500 MG TAB PO SCH (09:13)
[2017-05-28] MEDS: MESALAMINE 800 MG TAB.DR PO SCH (09:14)
[2017-05-28] MEDS: EZETIMIBE 10 MG TAB PO SCH (09:14)
[2017-05-28] MEDS: HYDROCORTISONE ACETATE 25 MG SUPP PR SCH (09:20)
--- NOTE | 2017-05-28 09:42 | GDS ---
[f rep st] DISCHARGE SUMMARY DISCHARGE DIAGNOSES: 1. Clostridium difficile colitis. 2. Diarrhea. 3. Crohn colitis. 4. Metastatic breast cancer. 5. Hypokalemia. 6. Chronic urinary tract infection. 7. Hypothyroidism. 8. Rectal spasms. HISTORY OF PRESENT ILLNESS: A pleasant 72-year-old female with history of well- controlled Crohn disease, recurrent UTIs on suppressive Macrobid, presenting with 8 weeks of diarrhea. She describes it as mucousy. She is having significant rectal pain and spasms. Nurse had recommended trying Preparation- H. She took 1 suppository and since then had blood in her stools. She has had diffuse abdominal pain and decreased p.o. intake. HOSPITAL COURSE BY PROBLEM: 1. Acute C difficile colitis: It is likely secondary to suppressive treatment with Macrobid. She will complete 14 days of p.o. vancomycin. She is having less frequent stools here and had a formed one today. 2. Crohn colitis, aggravated with acute illness: Underwent colonoscopy that showed aphthae in the entire colon and congestive acute mucosa in the rectum, along with ileitis. Biopsies pending. 3. She was treated with prednisone 40 mg here and will decrease to [address] De La Fuente with GI will schedule follow up with Dr. Branham next week. 4. Rectal spasm secondary to acute illness: She trialed steroid suppositories , but this actually caused more pain. We will prescribe low-dose Dilaudid. 5. Hypothyroidism: Levothyroxine. 6. Hypokalemia: Due to decreased p.o. intake, repleted. 7. Recurrent UTIs: stopped suppressive abx with C diff DISPOSITION: Patient is stable for discharge home with family. NEW MEDICATIONS: 1. Prednisone 20 mg daily. 2. Dilaudid 2 mg q.6 hours as needed. 3. Vancomycin 125 mg four times daily. FOLLOWUP: GI next week. Pending: Colonic biopsy pathology PHYSICAL EXAMINATION: VITAL SIGNS: Temperature 36.6, blood pressure 153/90, heart rate in the 50s, respirations 16, 96% on room air. GENERAL: Sitting up in bed, smiling, appears brighter. HEENT: PERRLA. EOMI. Oropharynx clear. CV: Regular rate and rhythm. No murmurs, gallops, or rubs. LUNGS: Clear. ABDOMEN: Nondistended, soft. No tenderness to palpation. : No Cheung. MUSCULOSKELETAL: 5/5 upper and lower extremity strength. NEURO: 2 through 12 intact. /[id number]/MODL MTDD
[2017-05-28] MEDS: CHOLESTYRAMINE/SUCROSE 4 GM PKT PO SCH (10:30)
--- NOTE | 2017-05-28 12:08 | PDIAF ---
- Diagnosis Diagnosis: C diff colitis Code Status: Full Code - Medication Management Discharge Medications: Medications to Continue on Transfer Calcium Carbonate [Calcium] 500 mg PO DAILY 05/21/17 [Last Taken 05/18/17] Cholecalciferol Vit D3 [Vitamin D3 2000 units tab (OTC)] 2,000 units PO DAILY [Last Taken 05/20/17] Ezetimibe [Zetia 10 MG (*)] 10 mg PO DAILY@1000 05/21/17 [Last Taken 05/18/17] Levothyroxine [Synthroid 100 mcg (*)] 100 mcg PO DAILY06 05/21/17 [Last Taken ] Mesalamine 800 mg PO TID 05/21/17 [Last Taken 05/21/17 10:30] Trastuzumab [Herceptin] 1 infusset IV Q21D 05/21/17 [Last Taken 05/14/17] Xgeva 1 dose SQ .Q3MO 05/21/17 [Last Taken Unknown] Acetaminophen [Tylenol Extra Strength] 500 mg PO Q6HRS #30 tablet 05/28/17 [ Last Taken Unknown] Cholestyramine/Sucrose [Questran] 4 gm PO TID #21 pkt 05/28/17 [Last Taken Unknown] HYDROmorphone HCL [Dilaudid 2 mg (*)] 2 mg PO Q6H PRN #30 tab 05/28/17 [Last Taken Unknown] Hyoscyamine Sulfate [Levsin] 0.125 mg PO Q4 #20 tablet 05/28/17 [Last Taken Unknown] Mesalamine [Asacol Hd] 800 mg PO TID #90 tab. 05/28/17 [Last Taken Unknown] Vancomycin [Vancocin Oral Liquid] 250 mg PO QID #26 udl 05/28/17 [Last Taken Unknown] predniSONE 20 mg PO DAILY #30 tablet 05/28/17 [Last Taken Unknown] Discharge Medications: Refer to the Discharge Home Medication list for PRN reason. - Orders Services needed: Home Care, Registered Nurse Home Care Face to Face: I certify that this patient was under my care and that I had the required [id number] encounter meeting the encounter requirements on the discharge day. My findings support the fact that the patient is homebound as defined in Home Care Face to Face Continued: CMS Chapter 7 Medicare Benefits Manual 30.1.1 , The condition of the patient is such that there exists a normal inability to leave home and consequently, leaving home would require a considerable and taxing effort. Isolation Type: CDIFF Isolation, Contact Isolation Diet Recommendation: no restrictions on diet Diet Texture: Regular Texture Diet - Follow Up Care Current Providers and Referrals: Jorge Valles MD [Medical Doctor] - follow up in 1 week NONE *PRIMARY CARE P,. [Unknown] - Arpita Mckeon MD [Medical Doctor] -
[2017-05-28 12:53] VITALS: BP 147/87; PULSE 60; O2SAT 95
--- NOTE | 2017-05-28 13:08 | ASMTCMCOM ---
CM Note CM Note Notes: Chart reviewed. Met with patient to review discharge plan of care. She states she has hired [facility] but declines need for home health RN at this time. [facility] notified. CM available should other needs arise. Date Signed: 05/28/2017 01:07 PM Electronically Signed By:Dinah Martin RN
--- NOTE | 2017-05-28 13:09 | ASMTLACE ---
LACE Length of stay for Answers: 4-6 days current admission Comorbidities - select Answers: Other Notes: Hx of Crohn's disease all that apply # of Emergency department Answers: 1-2 visits in the last 6 months Score: 6 Date Signed: 05/28/2017 01:08 PM Electronically Signed By:Dinah Martin RN
--- NOTE | 2017-05-29 14:25 | ASDISCHSUM ---
Discharge Information Plan Status:Home with No Needs Medically Cleared to Leave:05/28/2017 Discharge Date:05/28/2017 02:15 PM CM D/C Disposition:Home, Routine, Self-Care ADT D/C Disposition:Home, Routine, Self-Care Projected Discharge Date:05/26/2017 11:00 AM Transportation at D/C:Family Discharge Delay Reason: Follow-Up Date:05/26/2017 11:00 AM Discharge Slot: Final Diagnosis: Placement Information Referral Type:*Home Health Care Services Referral ID:[id number] Provider Name: Address 1: Phone Number: Address 2: Fax Number: City: Selection Factors: State: Patient Contact Information Contact Name:KARYNA Relationship: Address:[address] City:[place] Alternate Phone: State/Zip Code:[place] [address] Email: Financial Information Financial Class:Medicare Primary Plan Desc:MEDICARE INPATIENT Primary Plan Number:[id number] Secondary Plan Desc:VASILE Secondary Plan Number:[id number] Assessment Information [facility] CM Progress Note CM Note CM Note Notes: Patient admitted with abdominal pain. She has a colonoscopy today which revealed likely mild Crohn's colitis. Biopies were taken, and pathology is pending. She lives with her Jere and is normally independent. She will d/c home when she can tolerate PO and having reasonable symptom control. Date Signed: 05/22/2017 10:20 AM Electronically Signed By:Yesika Carpio RN LACE LACTanika Length of stay for Answers: 4-6 days current admission Comorbidities - select Answers: Other Notes: Hx of Crohn's disease all that apply # of Emergency department Answers: 1-2 visits in the last 6 months Score: 6 Date Signed: 05/28/2017 01:08 PM Electronically Signed By:Dinah Martin RN [facility] CM Progress Note CM Note CM Note Notes: Met with pt, and dtr to discuss DC plans. Pt would like [facility]. [facility] alerted. Pt Also wants to hire pvt duty help for at least a month for at least 8 hrs/day. Gave pt the list and her dtr will make the calls. CM will follow as needed. Date Signed: 05/24/2017 12:16 PM Electronically Signed By:Dolly Milner LCSW [facility] CM Progress Note CM Note CM Note Notes: 05/27/2017 Case Management Note Reviewed chart. D/C anticipated Sunday or Sunday. There are no PT or OT evals at this time. Case Management d/c poc: Remains [facility] with private duty help. Case Management to follow. Date Signed: 05/27/2017 04:48 PM Electronically Signed By:Franchesca Negro RN [facility] CM Progress Note CM Note CM Note Notes: Chart reviewed. Met with patient to review discharge plan of care. She states she has hired [facility] but declines need for home health RN at this time. [facility] notified. CM available should other needs arise. Date Signed: 05/28/2017 01:07 PM Electronically Signed By:Dinah Martin RN Case Management Discharge Plan Note Case Management Discharge Discharge Order Complete? Answers: Yes Patient to Obtain Answers: via Family Medications Transportation Arranged Answers: Family/Friends JUSTINALA Complete Answers: No Family Notified Answers: Yes Date Signed: 05/28/2017 01:09 PM Electronically Signed By:Dinah Martin RN Intervention Information Intervention Type:*SCOTT-Signed Date of Service:05/22/2017 11:43 AM Patient Type:Observation Staff Member:Krista Colin Hours: Discipline: Severity: Comment: Intervention Type:*IM-Signed Date of Service:05/25/2017 04:07 PM Patient Type:Inpatient Staff Member:Krista Colin Hours: Discipline: Severity: Comment: Intervention Type:*IM-Signed Date of Service:05/28/2017 10:08 AM Patient Type:Inpatient Staff Member:Krista Colin Hours: Discipline: Severity: Comment:
== END 2017-05-28 14:15 | disposition home or self-care (01) | DRG 372 ==
LOC: INTOOBSV 16:13 → F1N 17:50 → OBSVTOIN 05-22 18:57
PROVIDERS: ADMIT Internal Medicine; ATTEND Internal Medicine
PROC: 0DBF8ZX Excision of Right Large Intestine, Via Natural or Artificial Opening Endoscopic, Diagnostic (ICD-10-PCS; principal; 2017-05-22 08:15)
PROC: 0DBB8ZX Excision of Ileum, Via Natural or Artificial Opening Endoscopic, Diagnostic (ICD-10-PCS; principal; 2017-05-22 08:15)
PROC: 0DBG8ZX Excision of Left Large Intestine, Via Natural or Artificial Opening Endoscopic, Diagnostic (ICD-10-PCS; principal; 2017-05-22 08:15)
PROC: 0DBP8ZX Excision of Rectum, Via Natural or Artificial Opening Endoscopic, Diagnostic (ICD-10-PCS; principal; 2017-05-22 08:15)
DX: A04.72 Enterocolitis due to Clostridium difficile, not specified as recurrent (principal); K50.90 Crohn's disease, unspecified, without complications; E87.6 Hypokalemia; C79.51 Secondary malignant neoplasm of bone; Z85.3 Personal history of malignant neoplasm of breast; E03.9 Hypothyroidism, unspecified; Z87.440 Personal history of urinary (tract) infections; Z92.3 Personal history of irradiation
CPT/HCPCS: 96374; G0378; J2250; J2920; J3010; J7512